=== PATIENT | female | born 2000 | race Caucasian/White ===

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

== ENCOUNTER 2022-01-16 23:52 | Emergency (ER) | payer OTHER, MEDICAID, SELFPAY ==
[2022-01-17 00:03] VITALS: BP 130/60; PULSE 122; RESP 17; TEMP 37.4; O2SAT 98; BMI 32.9
--- NOTE | 2022-01-17 00:46 | ED_ITS ---
HPI - Ear Problem General Chief complaint: Ear Stated complaint: EAR INFECTION Time Seen by Provider: 01/17/22 00:27 Source: patient and family Mode of arrival: Ambulatory History of Present Illness HPI Narrative: 21-year-old young woman with history of anxiety, depression, on oral contraceptives presents with right your pain. Five days ago she had used saline rinse to try to get some cerumen out of the ear because the ear was bothering her. The saline flush seem to make things worse. She was seen in an urgent care 48 hours ago and given ofloxacin drops which she has been using but is not improving. She is now having enough pain that she is having difficulty sleeping and continued fullness and difficulty in the right ear. She had chills today but does not describe any fevers. She has not had any nasal or posterior pharyngeal discharge. She describes no cough, palpitations, vomiting, abdominal pain or diarrhea. She has had mild headache. Related Data Home Medications Medication Instructions Recorded Confirmed escitalopram oxalate 10 mg tablet 10 mg PO DAILY 12/26/19 12/26/19 fluoxetine 20 mg capsule 20 mg PO DAILY 12/26/19 hydroxyzine pamoate 25 mg capsule 25 mg PO QID 12/26/19 ofloxacin 0.3 % ear drops drp 01/17/22 Previous Rx's Medication Instructions Recorded amoxicillin-potassium clavulanate 1 tab PO BID #14 tab 01/17/22 1,000 mg-62.5 mg tablet,ext.rel 12hr (Augmentin XR) Allergies Allergy/AdvReac Type Severity Reaction Status Date / Time No Known Allergies Allergy Uncoded 01/17/22 00:06 Review of Systems Review of Systems Narrative: Remainder of complete review of systems is otherwise unremarkable except for that included in the HPI. Patient History Medical History (Updated 01/17/22 @ 00:51 by Haley Funes MD) Patient denies medical problems Social History Smoking Status: Never smoker Smoking Status: Never smoker alcohol intake frequency: 0-2 drinks per day Substance Use Type: does not use Exam Initial Vital Signs Initial Vital Signs: Vital Signs Temperature 99.3 F 01/17/22 00:03 Pulse Rate 122 H 01/17/22 00:03 Respiratory Rate 17 01/17/22 00:03 Blood Pressure 130/60 01/17/22 00:03 Pulse Oximetry 98 01/17/22 00:03 General: Alert appropriate in no acute distress HEENT: No nasal discharge, no posterior pharyngeal erythema. She has some minor right-sided anterior cervical adenopathy. Quite a bit of fullness around the year in tenderness with manipulation of helix. She does not have specific tenderness over the mastoid. The ear canal is significantly swollen slightly erythematous no obvious discharge Respiratory: Able to speak in full sentences, no obvious respiratory distress Skin: No obvious rashes, warm and dry Neurologic: Grossly intact no obvious asymmetries or abnormalities Psych: appropriate insight and affect, cooperative Course Orders Ordered: Discontinued Medications Acetaminophen (Acetaminophen 325 Mg Tablet) 325 mg PO NOW ONE Stop: 01/17/22 00:40 Amoxicillin/Clavulanate Potassium (Amoxicillin/Clav 875/125 Mg) 1 tab PO NOW ONE Stop: 01/17/22 00:38 Ibuprofen (Ibuprofen 400 Mg Tablet) 400 mg PO NOW ONE Stop: 01/17/22 00:40 Vital Signs Vital signs: Vital Signs - 8 hr 01/17/22 00:03 Temperature 99.3 F Pulse Rate 122 H Respiratory Rate 17 Blood Pressure 130/60 Pulse Oximetry 98 Medical Decision Making [facility] Narrative Medical decision making narrative: 21-year-old woman with what looks like both and otitis media and otitis externa that has failed 0floxacin drops. Will place her on Augmentin and if she has not improved within the next 3-4 days have referred her to our [facility]. Currently she has too much edema and too much pain to place an ear wick in the emergency department. If she has increasing headaches, develops any fevers, nuchal rigidity or worsening pain she needs to return to the emergency department all of this is explained to both patient and her mother, questions are answered she is safe for home discharge Discharge Plan Departure Patient Disposition: Home Clinical Impression: Otitis media, Otitis externa Instructions: DI for Otitis Media (Middle Ear Infection)-Child Activity Restrictions/Additional Instructions: Thank you for coming in today Your ear looks like it has an infection behind the tympanic membrane, the inner part of the ear and in the canal as well. There is no swelling that I do not think the ear drops are getting deep enough to be effective. I have given you a prescription for Augmentin to be taken twice a day for the next 7 days. This prescription was electronically transmitted to [facility] in [place] Using 400 mg of ibuprofen (2 rlvi-tem-ctawmbu pills) and 1 Tylenol every 6 hours can be very helpful in controlling pain. If you are still having significant pain and feeling that you are not improving by the end of the week please follow-up with the ear nose and throat physician. [place] [facility] [facility] [place] office phone #[phone]. If you have worsening symptoms, fevers, you developing significant headaches, neck pain or light sensitivity you need to return to the emergency department. Prescriptions: New amoxicillin-pot clavulanate [Augmentin XR] 1,000-62.5 mg tablet extended release 12 hr 1 tab PO BID Qty: 14 0RF No Action ofloxacin 0.3 % drops 0RF Label Comments: INSTILL 10 DROPS INTO AFFECTED EAR ONCE A DAY FOR 7 DAYS. fluoxetine 20 mg capsule 20 mg PO DAILY 0RF hydroxyzine pamoate 25 mg capsule 25 mg PO QID 0RF escitalopram oxalate 10 mg tablet 10 mg PO DAILY 0RF Referrals: Elaine Baltazar ARNP [Primary Care Provider] -
[2022-01-17] MEDS: IBUPROFEN 400 MG TABLET PO (00:49)
[2022-01-17] MEDS: AMOXICILLIN/CLAV 875/125 MG 1 TAB PO (00:49)
[2022-01-17] MEDS: ACETAMINOPHEN 325 MG TABLET PO (00:49)
[2022-01-17 01:00] VITALS: BP 122/66; PULSE 93; RESP 17; O2SAT 99
--- NOTE | 2022-01-17 14:32 | PC.NURSE ---
01/17 1400 [facility] called regarding rx change, new rx sent to [facility] pharmacy by Dr. Milian, unable to update pt r/t no working phone number in chart
== END 2022-01-17 01:00 | disposition home or self-care (01) ==
PROVIDERS: Emergency Provider Emergency Medicine; Family Provider Nurse Practitioner Family; PCP Nurse Practitioner Family
DX: H66.91 Otitis media, unspecified, right ear (principal); H60.91 Unspecified otitis externa, right ear
CPT/HCPCS: 99283

== ENCOUNTER 2025-09-02 08:54 | Emergency (ER) | payer MEDICAID, SELFPAY ==
[2025-09-02 08:59] VITALS: BP 98/53; PULSE 86; RESP 18; TEMP 36.6; O2SAT 97; BMI 25.0
--- NOTE | 2025-09-02 09:03 | DI.RAD.S_ITS ---
PROCEDURE: XR LUMBAR SPINE 2-3V INDICATIONS: low back pain, radiates r/ leg. TECHNIQUE: 3 views of the lumbar spine were acquired. COMPARISON: None. FINDINGS: Bones: 5 odw-lha-aeccaeu vertebrae are present. There is normal bony alignment. No vertebral body compression fractures. No suspicious bony lesions. Soft tissues: Overlying bowel gas pattern is normal. No suspicious soft tissue calcifications. IMPRESSION: No acute bony abnormality. Dictated by: Evan Linares M.D. on 09/02/2025 at 9:38 Approved by: Evan Linares M.D. on 09/02/2025 at 9:39
--- NOTE | 2025-09-02 09:04 | ED.GENADULT ---
HPI - General Adult General Chief complaint: Extremity Problem,Nontraumatic Stated complaint: Right hip pain, Time Seen by Provider: 09/02/25 08:56 Source: patient, RN notes reviewed and old records reviewed Mode of arrival: Wheelchair Limitations: no limitations History of Present Illness HPI narrative: 25-year-old female history of anxiety presents with complaint of low back pain that radiates around to the right hip. Patient states started last night has been increasingly painful. It is worse with movement. Patient notes increasing discomfort with movement of her leg as well. She has not had similar symptoms in the past. She denies any trauma or injuries. Patient states no paresthesias down her legs. She does have some radiation down her leg. She denies any weakness. No saddle anesthesia. No bowel or bladder incontinence. No fevers. No rash or skin changes, no swelling or warmth. Patient notes she feels very anxious and has been breathing quite quickly in her fingers feel numb and tingling bilaterally. She denies any chest pain or shortness of breath. No nausea or vomiting. No other GI or urinary symptoms. She has not taken anything for pain today. She denies any prior surgeries. Patient states no daily medications. She notes she has an IUD. She does vape tobacco, occasional alcohol, no recreational drugs. She is accompanied by her mother. Related Data Home Medications ?Medication ?Instructions ?Recorded ?Confirmed escitalopram oxalate 10 mg tablet 10 mg PO DAILY 12/26/19 12/26/19 fluoxetine 20 mg capsule 20 mg PO DAILY 12/26/19 hydroxyzine pamoate 25 mg capsule 25 mg PO QID 12/26/19 ofloxacin 0.3 % ear drops drp 01/17/22 Previous Rx's ?Medication ?Instructions ?Recorded amoxicillin-potassium clavulanate 1 tab PO BID #14 tabs 01/17/22 1,000 mg-62.5 mg tablet,ext.rel 12hr (Augmentin XR) cyclobenzaprine 10 mg tablet 10 mg PO Q8H PRN muscle spasm #10 09/02/25 tabs Allergies Allergy/AdvReac Type Severity Reaction Status Date / Time No Known Allergies Allergy Uncoded 09/02/25 08:59 Review of Systems Review of Systems ROS Unobtainable: All systems reviewed & are unremarkable except as noted in HPI and below Patient History Medical History (Updated 09/02/25 @ 09:13 by Kate Ron DO) Patient denies medical problems Social History Smoking Status: Current every day smoker Smoking Status: Current every day smoker tobacco type: vaping alcohol intake frequency: 0-2 drinks per day Exam Narrative Exam Narrative: GENERAL: Alert and oriented x three, female in mild distress HEENT: Head normocephalic, atraumatic, EOMI, pupils reactive, face symmetric, moist mucous membranes NECK: Supple, full range of motion CARDIOVASCULAR: Regular rate and rhythm without murmurs, rubs or gallops. RESPIRATORY: Breath sounds equal bilaterally, no wheezes rales or rhonchi. ABDOMEN: Soft, nontender. Normoactive bowel sounds all 4 quadrants. No guarding or rebound, rigidity, no mass : No CVA tenderness BACK: No cervical, thoracic vertebral point tenderness. Patient has some mild tenderness at L4-L5, no warmth, erythema or skin changes also able to palpate and patient has discomfort over the piriformis region. Patient has mild decreased range of motion. Rectal exam is deferred. No saddle anesthesia. Muscle strength is 5/5 in lower extremities, DTRs 2/4 left lower extremity patient is slightly hyperreflexic on the right with patellar. No clonus. Dorsalis pedis and tibialis pulses are 2+ and lower extremities. Sensation is intact in the lower extremities. EXTREMITIES: Normal range of motion, no clubbing or edema. Neurovascularly intact. NEUROLOGICAL: Cranial nerves II through XII grossly intact. Moving all extremities SKIN: Warm, dry, no petechiae, no rashes or lesions. Initial Vital Signs Initial Vital Signs: Vital Signs Temperature 97.8 F 09/02/25 08:59 Pulse Rate 86 09/02/25 08:59 Respiratory Rate 18 09/02/25 08:59 Blood Pressure 98/53 L 09/02/25 08:59 Pulse Oximetry 97 09/02/25 08:59 Oxygen Delivery Method Room Air 09/02/25 08:59 Course Orders Ordered: ED Orders 09/02/25 09:03 XR lumbar spine 2-3V Stat Discontinued Medications Cyclobenzaprine HCl (Cyclobenzaprine 10 Mg Tablet) 10 mg PO NOW ONE Stop: 09/02/25 09:04 Last Admin: 09/02/25 09:09 Dose: 10 mg Documented By: BECKY Ibuprofen (Ibuprofen 400 Mg Tablet) 800 mg PO NOW ONE Stop: 09/02/25 09:04 Last Admin: 09/02/25 09:11 Dose: 800 mg Documented By: BECKY Vital Signs Vital signs: Vital Signs - 8 hr 09/02/25 08:59 09/02/25 10:25 Temperature 97.8 F Pulse Rate 86 74 Respiratory Rate 18 16 Blood Pressure 98/53 L 106/55 L Pulse Oximetry 97 98 Oxygen Delivery Method Room Air Room Air Medical Decision Making MDM Narrative Medical decision making narrative: 25-year-old female with new onset right low back/hip pain patient has pain radiating from midline lower back down towards her right hip denies any paresthesias no weakness she does have increased pain with movement. She is slightly hyperreflexic on the right patellar compared to the left. No other red flag symptoms currently. Lumbar x-ray, no acute bony abnormality. Patient received ibuprofen and muscle relaxer. Patient is feeling much improved on repeat evaluation. Discussed findings for today, return precautions, need for follow up if persistent symptoms. All questions answered. Discharge Plan Departure Patient Disposition: Home Clinical Impression: Low back pain potentially associated with radiculopathy Instructions: DI for Lumbar Radiculopathy Activity Restrictions/Additional Instructions: Follow up with primary care if your symptoms are persistent. Increase your activity as tolerated, you can perform gentle stretching as tolerated. You can take ibuprofen up to 600 mg every 6 hours and/or acetaminophen up to a 1000 mg every 6 hours as needed for pain. If inadequate for pain you can take muscle relaxer 1 tablet every 6 hours as needed. This medication can make you sleepy do not drive, perform hazardous activities or make any major decisions while taking it. Prescription sent to [facility] in [place]. Please return if you develop fevers, rapidly worsening pain, any loss of bowel or bladder control, loss of sensation or if you can not feel your lower extremity, if you can not lift or move your lower extremity, lead to ambulate safely or other new or concerning changes. Prescriptions: New cyclobenzaprine 10 mg tablet 10 mg PO Q8H PRN (Reason: muscle spasm) Qty: 10 0RF No Action ofloxacin 0.3 % drops Patient Comments: INSTILL 10 DROPS INTO AFFECTED EAR ONCE A DAY FOR 7 DAYS. amoxicillin-pot clavulanate [Augmentin XR] 1,000-62.5 mg tablet extended release 12 hr 1 tab PO BID Qty: 14 0RF fluoxetine 20 mg capsule 20 mg PO DAILY hydroxyzine pamoate 25 mg capsule 25 mg PO QID escitalopram oxalate 10 mg tablet 10 mg PO DAILY Stand Alone Forms: Patient Portal/API, Work Release Note
[2025-09-02] MEDS: CYCLOBENZAPRINE 10 MG TABLET PO (09:09)
[2025-09-02] MEDS: IBUPROFEN 400 MG TABLET 800 MG PO (09:11)
[2025-09-02 10:25] VITALS: BP 106/55; PULSE 74; RESP 16; O2SAT 98
== END 2025-09-02 10:36 | disposition home or self-care (01) ==
PROVIDERS: Emergency Provider Emergency Medicine; Family Provider Nurse Practitioner Family
DX: M54.16 Radiculopathy, lumbar region (principal); M25.551 Pain in right hip
CPT/HCPCS: 72100; 99283